=== PATIENT | female | born 1970 | race Caucasian/White ===

== ENCOUNTER 2025-01-07 23:34 | Emergency (ER) | payer OTHER, SELFPAY ==
[2025-01-07 23:40] VITALS: BP 159/99
[2025-01-07 23:52] VITALS: BP 129/94
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
[2025-01-08 00:06] VITALS: BMI 20.6
[2025-01-08 00:33] LABS: % Basophils 0.6 % (0-2); % Immature Granulocytes 0.4 % (0-0.5); % Lymphocytes 32.6 % (20.5-51.1); % Monocytes 11.5 % (1.7-9.3); % Neutrophils 52.9 % (42.2-75.2); ALT (SGPT) 53 U/L (0-35); AST (SGOT) 34 U/L (14-36); Absolute Eosinophils 0.1 10^3/uL (0-0.7); Absolute Lymphocytes 2.3 10^3/uL (1.2-3.4); Absolute Monocytes 0.8 10^3/uL (0.1-0.6); Absolute Neutrophils 3.7 10^3/uL (1.4-6.5); Albumin 4.3 g/dl (3.5-5.0); Alkaline Phosphatase 98 U/L (38-126); Blood Urea Nitrogen 16 mg/dl (7-17); Calcium 9.2 mg/dl (8.4-10.2); Carbon Dioxide 25 mmol/L (22-30); Chloride 110 mmol/L (98-107); Estimated Creatinine Clearance 92 ml/min; Glucose 91 mg/dl (70-99); Hematocrit 37.4 % (37.0-47.0); Hemoglobin 12.7 g/dL (12.0-16.0); Mean Corpuscular Hgb 29.5 pg (27.0-31.0); Mean Platelet Volume 9.5 fL (7.4-10.4); Nucleated Red Blood Cells % 0 %; Platelet Count 304 10^3/uL (130-400); Potassium 4.2 mmol/L (3.5-5.1); Red Cell Dist. Width 12.6 % (11.5-14.5); Sodium 143 mmol/L (135-145); Total Bilirubin 0.6 mg/dl (0.2-1.3); Total Protein 7.2 g/dl (6.3-8.2); eGFR > 60.00
[2025-01-08 01:42] VITALS: BP 130/78
== END 2025-01-08 01:44 | disposition home or self-care (01) ==
LOC: EMR 23:34
PROVIDERS: EMERGENCY PHYSICIAN Emergency Medicine; FAMILY PHYSICIAN Family Medicine
DX: R42 Dizziness and giddiness (principal); R11.0 Nausea; I10 Essential (primary) hypertension; I44.4 Left anterior fascicular block
CPT/HCPCS: 99284; 70450; 80053; 85025; 93005